=== PATIENT | male | born 1960 | race Caucasian/White ===

== ENCOUNTER → 2016-08-06 | Outpatient (CLI) | payer OTHER ==
[~2016-08-06] MED LIST: ASPIRIN 81M81 MG/TA2 PO; CENTRUM SILVER1 TAB; FISH OIL 1000MG1 CAP PO; LIPITOR20 MG PO; MAGNESIUM100 MG PO; MELATONIN5 M1 SL; NORVASC2.5 MG PO; OMEGA-31 SGL PO; ULTRAM 50MG TAB50 MG PO; VTAMINC250TA
== END ==
LOC: COL.RAD 09:24
DX: M50.01 Cervical disc disorder with myelopathy, high cervical region (principal); M25.78 Osteophyte, vertebrae; Z98.1 Arthrodesis status

== ENCOUNTER → 2022-03-05 | Outpatient (CLI) | payer OTHER | LOC: COL.RAD 08:30 | DX: M89.9 Disorder of bone, unspecified (principal) | CPT/HCPCS: A9503 ==